=== PATIENT | female | born 1955 | race Caucasian/White ===

== ENCOUNTER → 2023-07-03 14:38 | Outpatient (REF) | payer OTHER, SELFPAY | LOC: HWWDC 14:38 | PROVIDERS: ATTENDING PHYSICIAN Family Medicine | DX: Z12.31 Encounter for screening mammogram for malignant neoplasm of breast (principal) | CPT/HCPCS: 77063; 77067 ==

== ENCOUNTER → 2024-06-18 13:36 | Outpatient (REF) | payer OTHER, SELFPAY | LOC: WDC 13:36 | PROVIDERS: ATTENDING PHYSICIAN Family Medicine Geriatric Medicine | DX: R92.2 Inconclusive mammogram (principal); D05.12 Intraductal carcinoma in situ of left breast; Z85.3 Personal history of malignant neoplasm of breast | CPT/HCPCS: 76641 ==

== ENCOUNTER → 2024-07-16 15:36 | Outpatient (REF) | payer OTHER, SELFPAY | LOC: HWWDC 15:36 | PROVIDERS: ATTENDING PHYSICIAN Family Medicine Geriatric Medicine; FAMILY PHYSICIAN Internal Medicine | DX: Z12.31 Encounter for screening mammogram for malignant neoplasm of breast (principal) | CPT/HCPCS: 77063; 77067 ==